=== PATIENT | male | born 1970 | race Caucasian/White ===

== ENCOUNTER 2017-09-17 10:09 | Outpatient (CLI) | payer BC | END 2017-09-17 10:10 | disposition home or self-care (01) | LOC: SC 10:09 | PROVIDERS: ATTEND Nurse Practitioner Family | DX: G47.33 Obstructive sleep apnea (adult) (pediatric) (principal); R03.0 Elevated blood-pressure reading, without diagnosis of hypertension | CPT/HCPCS: 99212; 99214 ==

== ENCOUNTER 2019-02-24 06:53 | Emergency (ER) | payer BC ==
--- NOTE | 2019-02-24 07:26 | ED Physician Documentation ---
History of Present Illness - Stated complaint Stated Complaint: ANXIETY ATTACK - Chief complaint Chief Complaint: MHE - History obtained from History obtained from: Patient, Family (Spouse) - Additonal information Additional information: The patient is a 48-year-old male who presents after having an anxiety attack this morning. He reports having brief episodes of chest tightness and shortness of breath, which lasts for only seconds. He then gets concerned about the possibility of heart disease and becomes overly anxious. He had a similar episode yesterday while at work. He reports a 20 pound weight gain over the past year and a half, and reports that his stamina has diminished. He gets short of breath with exertion and easily fatigued. The weight gain started after he underwent left shoulder surgery. He underwent rotator cuff repair and frozen shoulder release. His last shoulder surgery was in March 2018. He denies nausea, vomiting, cough, or fever. Past medical history is significant for hypertension for which he was previously treated with medication, but not currently. He has history of gastroesophageal reflux, for which he routinely takes Pepto-Bismol. He denies history of diabetes or cigarette smoking. Review of Systems Constitutional: denies: Fever, Sweats Ears: denies: Tinnitus/ringing Nose: denies: Congestion Throat: denies: Sore throat Cardiac: reports: Chest pain / pressure (brief episodes, lasting only seconds.). denies: Palpitations Respiratory: reports: Dyspnea (with light activity). denies: Cough GI: denies: Abdominal Pain, Nausea, Vomiting : denies: Dysuria Skin: denies: Rash Musculoskeletal: denies: Neck pain, Back pain, Extremity pain, Extremity swelling Neurologic: denies: Focal weakness, Numbness, Headache PD PAST MEDICAL HISTORY - Past Medical History Cardiovascular: Hypertension (Previously treated for HTN, but successfully weaned off of antihypertensive medication.) Respiratory: None Endocrine/Autoimmune: None GI: GERD : None HEENT: None Psych: None Musculoskeletal: None Derm: None - Past Surgical History Past Surgical History: Yes General: Other - Present Medications Home Medications: Ambulatory Orders Medication Instructions Recorded Confirmed No Known Home Medications 02/24/19 02/24/19 - Allergies Allergies/Adverse Reactions: Allergies Allergy/AdvReac Type Severity Reaction Status Date / Time No Known Drug Allergies Allergy Verified 05/22/15 20:13 - Social History Does the pt smoke?: No Smoking Status: Never smoker Does the pt drink ETOH?: Yes Does the pt have substance abuse?: No - Immunizations Immunizations are current?: Yes - POLST Patient has POLST: No PD ED PE NORMAL - Vitals Vital signs reviewed: Yes (Borderline systolic hypertension.) - General General: Alert and oriented X 3, Well developed/nourished - HEENT HEENT: Atraumatic, Pharynx benign - Neck Neck: No adenopathy, No JVD - Cardiac Cardiac: RRR - Respiratory Respiratory: No respiratory distress, Clear bilaterally - Abdomen Abdomen: Soft, Non tender, Other (Rotund abdomen.) - Back Back: No CVA TTP - Derm Derm: No rash - Extremities Extremities: No edema, No calf tenderness / cord - Neuro Neuro: Alert and oriented X 3, No motor deficit, Normal speech Results - Vitals Vitals: Oxygen O2 Source Room air - EKG (time done) 07:31 Rate: Rate (enter#) (77) Rhythm: NSR [place]: Normal Intervals: Normal [place] QRS: Normal Ischemia: Normal ST segments Computer interpretation: Agree with computer - Labs Labs: Laboratory Tests 02/24/19 02/24/19 02/24/19 07:33 07:33 07:33 WBC 7.7 RBC 5.02 Hgb 15.4 Hct 46.3 MCV 92.2 MCH 30.7 MCHC 33.3 RDW 13.4 Plt Count 299 MPV 7.9 Neut # (Auto) 4.5 Lymph # (Auto) 2.1 [place] # (Auto) 0.8 Eos # (Auto) 0.2 Baso # (Auto) 0.1 Absolute Nucleated RBC 0.00 Nucleated RBC % 0.1 Sodium 137 Potassium 4.3 Chloride 105 Carbon Dioxide 21 Anion Gap 11.0 BUN 21 H Creatinine 0.8 Estimated GFR (MDRD) 102 Glucose 125 H Calcium 8.9 Total Bilirubin 0.5 AST 51 H ALT 90 H Alkaline Phosphatase 65 Troponin I < 0.04 Total Protein 7.4 Albumin 4.1 Globulin 3.3 Albumin/Globulin Ratio 1.2 Lipase 28 TSH 02/24/19 07:33 WBC RBC Hgb Hct MCV MCH MCHC RDW Plt Count MPV Neut # (Auto) Lymph # (Auto) [place] # (Auto) Eos # (Auto) Baso # (Auto) Absolute Nucleated RBC Nucleated RBC % Sodium Potassium Chloride Carbon Dioxide Anion Gap BUN Creatinine Estimated GFR (MDRD) Glucose Calcium Total Bilirubin AST ALT Alkaline Phosphatase Troponin I Total Protein Albumin Globulin Albumin/Globulin Ratio Lipase TSH 1.88 - Rads (name of study) 1-view CXR Radiology: Prelim report reviewed, EMP read contemporaneously, See rad report (No acute disease in the chest.) PD MEDICAL DECISION MAKING - ED course Complexity details: reviewed old records, reviewed results, re-evaluated patient, considered differential, d/w patient, d/w family ED course: Patient's presentation is significant for anxiety reaction related to brief episodes of chest discomfort. It is likely that his chest discomfort is caused by gastroesophageal reflux. Cardiac ischemia was considered, but there is no clinical evidence of acute cardiac ischemia. His EKG is normal, and his troponin is negative. He was asymptomatic while in the emergency department. Chest x-ray is negative. I discussed with him and his the results of his work-up, symptomatic treatment and outpatient follow-up, as well as potentially worrisome signs or symptoms that should prompt reevaluation in the emergency department. I discussed with them that it might be advisable to pursue outpatient cardiac stress test. Departure - Departure Disposition: Home, Self Care Clinical Impression: Anxiety GERD (gastroesophageal reflux disease) Qualifiers: Esophagitis presence: esophagitis presence not specified Qualified Code(s): K21.9 - Gastro-esophageal reflux disease without esophagitis Condition: Stable Instructions: ED Stress React, ED GERD Follow-Up: JEREMIAH JONES MD [Physician No Access] - Comments: Minimize coffee, ana, greasy or spicy foods. You can use liquid antacids, such as Maalox or Mylanta, if you develop recurrent symptoms. Follow-up with your primary physician within 2 weeks if possible. Call to schedule an appointment. You may want to discuss outpatient cardiac stress test. Return to the emergency department if you develop recurrent or increasing chest pain, shortness of breath, or otherwise worsening symptoms. Discharge Date/Time: 02/24/19 08:54
[2019-02-24 07:39] LABS: BASOPHILS # (AUTO) 0.1 10^3/uL (0.0-0.1); BASOPHILS % (AUTO) 1.3 %; EOSINOPHILS # (AUTO) 0.2 10^3/uL (0.0-0.7); EOSINOPHILS % (AUTO) 2.9 %; HGB - HEMOGLOBIN 15.4 g/dL (14.0-18.0); LYMPHOCYTES # (AUTO) 2.1 10^3/uL (1.5-3.5); LYMPHOCYTES % (AUTO) 26.8 %; MEAN CORPUSCULAR HEMOGLOBIN 30.7 pg (27.0-31.0); MEAN CORPUSCULAR HGB CONC 33.3 g/dL (32.0-36.0); MEAN CORPUSCULAR VOLUME 92.2 fL (80.0-94.0); MEAN PLATELET VOLUME 7.9 fL (7.4-11.4); MONOCYTES # (AUTO) 0.8 10^3/uL (0.0-1.0); MONOCYTES % (AUTO) 10.9 %; NEUTROPHILS # (AUTO) 4.5 10^3/uL (1.5-6.6); NEUTROPHILS % (AUTO) 58.1 %; PLT - PLATELET COUNT 299 10^3/uL (130-450); RED BLOOD COUNT 5.02 10^6/uL (4.70-6.10); RED CELL DISTRIBUTION WIDTH 13.4 % (12.0-15.0); WHITE BLOOD COUNT 7.7 x10^3/uL (4.8-10.8)
[2019-02-24 07:56] LABS: ALBUMIN 4.1 g/dL (3.2-5.5); ALBUMIN/GLOBULIN RATIO 1.2 (1.0-2.2); BILIRUBIN,TOTAL 0.5 mg/dL (0.2-1.0); CALCIUM 8.9 mg/dL (8.5-10.3); CREATININE 0.8 mg/dL (0.6-1.2); TOTAL PROTEIN 7.4 g/dL (6.7-8.2)
--- NOTE | 2019-02-24 07:57 | XRAY Report ---
Reason: chest pain Procedure Date: 02/24/2019 Accession Number: [id number] / [id number] Procedure: XR - Chest 1 View X-Ray CPT Code: 06110 FULL RESULT: EXAM: CHEST RADIOGRAPHY EXAM DATE: 02/24/2019 07:40 AM. CLINICAL HISTORY: Chest pain. COMPARISON: None. TECHNIQUE: 1 view. FINDINGS: Lungs/Pleura: No focal opacities evident. No pleural effusion. No pneumothorax. Mediastinum: Within exam limitations, the cardiomediastinal contour is normal. Other: None. IMPRESSION: 1. No acute disease in the chest. RADIA
[2019-02-24 08:53] VITALS: BP 122/74
== END 2019-02-24 08:54 | disposition home or self-care (01) ==
LOC: ED 06:53
DX: F41.9 Anxiety disorder, unspecified (principal); K21.9 Gastro-esophageal reflux disease without esophagitis; I10 Essential (primary) hypertension
CPT/HCPCS: 36415; 71045; 80053; 83690; 84443; 84484; 85025; 93005; 99283

== ENCOUNTER 2023-08-22 16:43 | Emergency (ER) | payer BC, OTHER ==
[2023-08-22 17:13] LABS: BASOPHILS # (AUTO) 0.1 10^3/uL (0.0-0.1); BASOPHILS % (AUTO) 0.6 %; EOSINOPHILS # (AUTO) 0.3 10^3/uL (0.0-0.7); EOSINOPHILS % (AUTO) 2.4 %; HCT - HEMATOCRIT 42.4 % (42.0-52.0); HGB - HEMOGLOBIN 14.3 g/dL (14.0-18.0); LYMPHOCYTES # (AUTO) 3.2 10^3/uL (1.5-3.5); LYMPHOCYTES % (AUTO) 27.7 %; MEAN CORPUSCULAR HGB CONC 33.7 g/dL (32.0-36.0); MEAN CORPUSCULAR VOLUME 89.1 fL (80.0-94.0); MONOCYTES # (AUTO) 0.8 10^3/uL (0.0-1.0); MONOCYTES % (AUTO) 7.1 %; NEUTROPHILS # (AUTO) 7.1 10^3/uL (1.5-6.6); NEUTROPHILS % (AUTO) 61.9 %; PLT - PLATELET COUNT 337 10^3/uL (130-450); RED BLOOD COUNT 4.76 10^6/uL (4.70-6.10); RED CELL DISTRIBUTION WIDTH 12.9 % (12.0-15.0); WHITE BLOOD COUNT 11.5 x10^3/uL (4.8-10.8)
--- NOTE | 2023-08-22 17:23 | XRAY Report ---
PROCEDURE: Chest 1 View X-Ray INDICATIONS: Chest pain TECHNIQUE: One view of the chest was acquired. COMPARISON: Chest x-ray 02/24/2019. FINDINGS: Surgical changes and devices: None. Lungs and pleura: No pleural effusions or pneumothorax. Lungs are clear. Mediastinum: Mediastinal contours appear normal. Heart size is normal. Bones and chest wall: No suspicious bony lesions. Overlying soft tissues appear unremarkable. IMPRESSION: No acute cardiopulmonary process. Reviewed by: Rosie Flores MD on 08/22/2023 5:22 PM PDT Approved by: Rosie Flores MD on 08/22/2023 5:22 PM PDT Station ID: [id number]
[2023-08-22 17:28] LABS: ALBUMIN 4.6 g/dL (3.2-5.5); ALBUMIN/GLOBULIN RATIO 1.5 (1.0-2.2); BILIRUBIN,TOTAL 0.5 mg/dL (0.2-1.0); CALCIUM 9.8 mg/dL (8.5-10.3); CREATININE 0.8 mg/dL (0.6-1.3); POTASSIUM 4.3 mmol/L (3.5-4.5); TOTAL PROTEIN 7.6 g/dL (6.4-8.9)
[2023-08-22 17:33] LABS: TROPONIN I HIGH SENSITIVITY 2.3 ng/L (2.3-19.7)
--- NOTE | 2023-08-22 17:57 | ED Physician Documentation ---
PD HPI CHEST PAIN - Stated complaint Stated Complaint: CHEST PX - Chief complaint Chief Complaint: Cardiac PD PAST MEDICAL HISTORY - Past Medical History Cardiovascular: Hypertension Respiratory: None Endocrine/Autoimmune: None GI: GERD : None HEENT: None Psych: None Musculoskeletal: None Derm: None - Past Surgical History Past Surgical History: Yes General: Other - Present Medications Home Medications: Ambulatory Orders Medication Instructions Recorded Confirmed No Known Home Medications 02/24/19 02/24/19 - Allergies Allergies/Adverse Reactions: Allergies Allergy/AdvReac Type Severity Reaction Status Date / Time No Known Drug Allergies Allergy Verified 05/22/15 20:13 - Social History Does the pt smoke?: No Smoking Status: Never smoker Does the pt drink ETOH?: Yes Does the pt have substance abuse?: No - Immunizations Immunizations are current?: Yes - POLST Patient has POLST: No Results - Vitals Vitals: Vital Signs - 24 hr 08/22/23 16:50 Temperature 36.8 C Heart Rate 66 Respiratory 20 Rate Blood Pressure 146/79 H O2 Saturation 98 Oxygen O2 Source Room air - EKG (time done) No standard instances EKG releavant findings:: EKG personally interpreted by author of this note. Relevant findings are: Rate: Rate (enter#) (64) Rhythm: NSR [place]: LAD Intervals: Normal [place] QRS: Normal Ischemia: Normal ST segments, Q waves Computer interpretation: Agree with computer - Labs Labs: Laboratory Tests 08/22/23 08/22/23 17:07 17:07 WBC 11.5 H RBC 4.76 Hgb 14.3 Hct 42.4 MCV 89.1 MCH 30.0 MCHC 33.7 RDW 12.9 Plt Count 337 MPV 10.0 Neut # (Auto) 7.1 H Lymph # (Auto) 3.2 [place] # (Auto) 0.8 Eos # (Auto) 0.3 Baso # (Auto) 0.1 Absolute Nucleated RBC 0.00 Nucleated RBC % 0.0 Sodium 137 Potassium 4.3 Chloride 103 Carbon Dioxide 29 Anion Gap 5.0 L BUN 16 Creatinine 0.8 Estimated GFR (MDRD) 100 Glucose 92 Calcium 9.8 Total Bilirubin 0.5 AST 17 ALT 23 Alkaline Phosphatase 65 Troponin I High Sens 2.3 Total Protein 7.6 Albumin 4.6 Globulin 3.0 Albumin/Globulin Ratio 1.5 Lipase 23 Departure - Departure
[2023-08-22 19:52] VITALS: O2SAT 98
[2023-08-22] MEDS ORDERED: KETOROLAC 30 MG/ML VIAL IVP STA (19:59)
[2023-08-22] MEDS ORDERED: diazePAM INJ 5 MG/ML SYRINGE IVP STA (19:59)
--- NOTE | 2023-08-22 20:00 | ED Physician Documentation ---
PD HPI CHEST PAIN - Stated complaint Stated Complaint: CHEST PX - Chief complaint Chief Complaint: Cardiac - History obtained from History obtained from: Patient - History of Present Illness Timing - details: Abrupt onset Quality: Sharp - Additional information Additional information: This is a very nice 53-year-old male who has a history of hypertension though is no longer requiring medication after losing about 60 pounds, he has a history of diverticulitis, and is otherwise generally healthy. He presents with chest pain. Pain started this morning when he woke up. It is a sharp spasm knee pain that lasts a couple of seconds and occurs every 10 to 40 minutes. It started this morning and has occurred multiple times throughout the day. It is located in the exact same spot every time which is just to the left of the sternum he can actually pinpoint it to within a centimeter or so. It has not moved. It sometimes does radiate into the left scapula. He cannot identify any alleviating or exacerbating factors. He does massage it when it comes along and it seems to go away though he does not know if that is helpful. It does not seem to be worse with exertion, it is not worse with particular muscle movements, deep breath, or positioning. He has no associated symptoms including no shortness of breath, no cough or difficulty breathing, no heart palpitations, no nausea vomiting diarrhea, No abdominal pain,no diaphoresis. He thought it would likely just go away on its own and tried to deal with it throughout the da y but states it has continued to persist and thus he came into the ER. He states it is more "annoying," than anything. He has not attempted any medication for this issue Other than an antacid which did not help. He has no history of heart disease, he has no history of smoking, diabetes, and has no family history of heart disease.No recent travel or prolonged immobility, no recent surgeries or hospitalizations, no calf pain or fullness. Review of Systems Constitutional: reports: Reviewed and negative Eyes: reports: Reviewed and negative Ears: reports: Reviewed and negative Nose: reports: Reviewed and negative Throat: reports: Reviewed and negative Cardiac: reports: Chest pain / pressure. denies: Palpitations, Pedal edema, Calf pain Respiratory: denies: Dyspnea, Cough, Hemoptysis, Wheezing GI: reports: Reviewed and negative : reports: Reviewed and negative PD PAST MEDICAL HISTORY - Past Medical History Past Medical History: Yes Cardiovascular: Hypertension Respiratory: None Endocrine/Autoimmune: None GI: GERD : None HEENT: None Psych: None Musculoskeletal: None Derm: None - Past Surgical History Past Surgical History: Yes General: Other - Present Medications Home Medications: Ambulatory Orders Medication Instructions Recorded Confirmed No Known Home Medications 02/24/19 02/24/19 - Allergies Allergies/Adverse Reactions: Allergies Allergy/AdvReac Type Severity Reaction Status Date / Time No Known Drug Allergies Allergy Verified 05/22/15 20:13 - Social History Does the pt smoke?: No Smoking Status: Never smoker Does the pt drink ETOH?: Yes Does the pt have substance abuse?: No - Immunizations Immunizations are current?: Yes - POLST Patient has POLST: No PD ED PE NORMAL - Vitals Vital signs reviewed: Yes - General General: Alert and oriented X 3, No acute distress, Well developed/nourished - HEENT HEENT: Atraumatic, Moist mucous membranes - Neck Neck: Supple, no meningeal sign, No JVD - Cardiac Cardiac: RRR, No murmur, No gallop, No rub, Strong equal pulses - Respiratory Respiratory: No respiratory distress, Clear bilaterally - Abdomen Abdomen: Normal bowel sounds, Soft, Non tender, Non distended - Derm Derm: Normal color, Warm and dry - Extremities Extremities: No deformity, No tenderness to palpate, Normal ROM s pain, No edema, No calf tenderness / cord - Neuro Neuro: Alert and oriented X 3 Eye Opening: Spontaneous Motor: Obeys Commands Verbal: Oriented GCS Score: 15 - Psych Psych: Normal mood, Normal affect Results - Vitals Vitals: Vital Signs - 24 hr 08/22/23 08/22/23 08/22/23 16:50 19:40 19:52 Temperature 36.8 C Heart Rate 66 56 L 52 L Respiratory 20 22 18 Rate Blood Pressure 146/79 H 135/111 H 121/86 H O2 Saturation 98 100 98 Oxygen O2 Source Room air - EKG (time done) No standard instances EKG releavant findings:: EKG personally interpreted by author of this note. Relevant findings are: Rate: Rate (enter#) (64) Rhythm: NSR [place]: LAD Intervals: Normal [place] QRS: Normal Ischemia: Normal ST segments, Q waves Compare to prior EKG: Old EKG unavailable Computer interpretation: Agree with computer - Labs Labs: Laboratory Tests 08/22/23 08/22/23 08/22/23 17:07 17:07 18:45 WBC 11.5 H RBC 4.76 Hgb 14.3 Hct 42.4 MCV 89.1 MCH 30.0 MCHC 33.7 RDW 12.9 Plt Count 337 MPV 10.0 Neut # (Auto) 7.1 H Lymph # (Auto) 3.2 [place] # (Auto) 0.8 Eos # (Auto) 0.3 Baso # (Auto) 0.1 Absolute Nucleated RBC 0.00 Nucleated RBC % 0.0 Sodium 137 Potassium 4.3 Chloride 103 Carbon Dioxide 29 Anion Gap 5.0 L BUN 16 Creatinine 0.8 Estimated GFR (MDRD) 100 Glucose 92 Calcium 9.8 Total Bilirubin 0.5 AST 17 ALT 23 Alkaline Phosphatase 65 Troponin I High Sens 2.3 2.3 Total Protein 7.6 Albumin 4.6 Globulin 3.0 Albumin/Globulin Ratio 1.5 Lipase 23 - Rads (name of study) No standard instances Relevant Findings:: Final report received PD Medical Decision Making - ED course Complexity details: reviewed results, re-evaluated patient, considered differential, d/w patient ED course: 53-year-old male presented with left chest pain as described in HPI. Differentials considered included ACS, PE, pneumonia, pneumothorax, GERD, dissection much less likely. Patient is well-appearing here on physical exam, and his vital signs are stable. We did obtain labs including CBC and CMP which were normal, troponin high-sensitivity x2 is also negative. His EKG shows no acute findings, and his chest x-ray is negative. The pain is very atypical, it is spasm in nature and in the same spot each time nonradiating with no associated symptoms. I suspect this is a muscle spasm, does not appear to be cardiac in nature I have low suspicion for dissection, he has no risk factors for PE and is Wells score is negative. His HEART score is 2 and therefore with reassuring exam he can follow up outpatient with PCP and consider outpatient stress test. He was given Toradol IV here as well as 2 mg of IV diazepam with improvement in his symptoms. We will monitor him for a period of time to see if he has any recurrence but at this point I do believe he will be able to discharge home, recommended Tylenol and ibuprofen as needed for pain, and discussed return precautions. Departure - Departure Clinical Impression: Atypical chest pain Condition: Good Instructions: ED Chest Pain Atypical Unkn Cause, ED Chest Pain NonCardiac Comments: Please try to establish care with a primary care provider. I would like you to follow-up outpatient with primary care or cardiology and they may consider an outpatient stress test. If you develop recurrent or worsening symptoms, please return to the ER. Otherwise you can take ibuprofen and Tylenol as needed for th e discomfort, and try to do some chest and back stretches which may help alleviate symptoms. Forms: PCP List
[2023-08-22 20:44] VITALS: BP 118/77
== END 2023-08-22 20:49 | disposition home or self-care (01) ==
LOC: ED 16:43
DX: R07.89 Other chest pain (principal); I10 Essential (primary) hypertension
CPT/HCPCS: 36415; 80053; 83690; 84484; 85025; 93005; 96374; 99284